=== PATIENT | male | born 1940 | race Caucasian/White ===

== ENCOUNTER → 2018-03-02 | Outpatient (CLI) | payer OTHER ==
[~2018-03-02] MED LIST: ASPIR 8181 MG PO; ATORVASTATIN CA40 MG PO; BUDESONIDE0.25 MG/2 INH; DOXYCYCLINE 10100 MG PO; DUONEB 2.5-0.5 M3 ML INH; GLIPIZIDE5 MG PO; HUMALOG100 UNIT/1 SUBQ; KLOR-CON 1010 MEQ PO; MAGNESIUM PO; MIRALAX17 GM PO; PLAVIX 75 MG TA75 M1 PO; VANCOMYCIN1.5 GM/500 IVPB; XARELTO10 MG PO; ZAROXOLYN 5MG TA5 MG PO
== END ==
LOC: M.WC 09:00
DX: S61.412A Laceration without foreign body of left hand, initial encounter (principal); E11.621 Type 2 diabetes mellitus with foot ulcer; L97.511 Non-pressure chronic ulcer of other part of right foot limited to breakdown of skin; E11.622 Type 2 diabetes mellitus with other skin ulcer; L97.311 Non-pressure chronic ulcer of right ankle limited to breakdown of skin; J44.9 Chronic obstructive pulmonary disease, unspecified; E11.22 Type 2 diabetes mellitus with diabetic chronic kidney disease; I12.9 Hypertensive chronic kidney disease with stage 1 through stage 4 chronic kidney disease, or unspecified chronic kidney disease; N18.9 Chronic kidney disease, unspecified; E11.40 Type 2 diabetes mellitus with diabetic neuropathy, unspecified; Z87.891 Personal history of nicotine dependence; X58.XXXA Exposure to other specified factors, initial encounter; Y93.89 Activity, other specified; Y92.89 Other specified places as the place of occurrence of the external cause; Y99.8 Other external cause status

== ENCOUNTER → 2018-03-04 | Outpatient (CLI) | payer OTHER | LOC: M.WC 04:04 | DX: S61.412D Laceration without foreign body of left hand, subsequent encounter (principal); E11.621 Type 2 diabetes mellitus with foot ulcer; L97.511 Non-pressure chronic ulcer of other part of right foot limited to breakdown of skin; L97.311 Non-pressure chronic ulcer of right ankle limited to breakdown of skin; E11.622 Type 2 diabetes mellitus with other skin ulcer; E11.40 Type 2 diabetes mellitus with diabetic neuropathy, unspecified; J44.9 Chronic obstructive pulmonary disease, unspecified; E11.22 Type 2 diabetes mellitus with diabetic chronic kidney disease; I12.9 Hypertensive chronic kidney disease with stage 1 through stage 4 chronic kidney disease, or unspecified chronic kidney disease; N18.9 Chronic kidney disease, unspecified; Z87.891 Personal history of nicotine dependence; X58.XXXD Exposure to other specified factors, subsequent encounter ==

== ENCOUNTER 2018-03-11 04:14 | Inpatient (IN) | payer OTHER ==
[~2018-03-11] VITALS: Ht 180.3 cm; Wt 134.8 kg
[2018-03-11 15:00] VITALS: BP 124/80
[2018-03-11] MEDS ORDERED: BUDESONIDE0.25 MG/2 INH (15:29)
[2018-03-11] MEDS ORDERED: GLIPIZIDE5 MG PO (15:29)
[2018-03-11] MEDS ORDERED: DUONEB 2.5-0.5 M3 ML INH (15:30)
[2018-03-11] MEDS ORDERED: MIRALAX17 GM PO (15:30)
[2018-03-11] MEDS ORDERED: HUMALOG100 UNIT/1 SUBQ (15:32)
[2018-03-11] MEDS ORDERED: XARELTO10 MG PO (15:32)
[2018-03-11] MEDS ORDERED: VANCOMYCIN1.5 GM/500 IVPB (15:33)
[2018-03-11] MEDS ORDERED: MAGNESIUM PO (15:34)
[2018-03-11] MEDS ORDERED: DOXYCYCLINE 10100 MG PO (15:34)
[2018-03-11 15:44] LABS: MCV 83.7 fL (80.0-100.0); NUCLEATED RBCS 0 /100WBC
[2018-03-11 15:46] LABS: ABSOLUTE BASOPHILS 0.1 thou/uL (0.0-0.2); ABSOLUTE EOSINOPHILS 0.6 thou/uL (0.0-0.7); ABSOLUTE LYMPHOCYTES 1.3 thou/uL (0.8-5.3); ABSOLUTE NEUTROPHILS 6.6 thou/uL (1.6-8.1); BASOPHILS 0.9 %; EOSINOPHILS 6.4 %; HEMATOCRIT 35.5 % (42.0-52.0); HEMOGLOBIN 11.2 gm/dL (14.0-18.0); LYMPHOCYTES 13.8 %; MCH 26.5 pg (26.0-34.0); MCHC 31.7 g/dL (28.0-37.0); MONOCYTES 10.5 %; MPV 9.1 fl. (7.2-11.1); PLATELET COUNT* 220 thou/uL (150-400); POLYS 68.4 %; RBC 4.24 mil/uL (4.50-6.00); RDW-CV 15.5 % (10.5-14.5); WBC 9.7 thou/uL (4.0-11.0)
[2018-03-11 15:52] LABS: CALCIUM 8.3 mg/dL (8.5-10.1); CREATININE 1.5 mg/dL (0.6-1.3); INR 1.3; MAGNESIUM 1.4 mg/dL (1.8-2.4); POTASSIUM 3.7 mmol/L (3.5-5.1); PROTIME 12.9 Seconds (9.20-11.50)
--- NOTE | 2018-03-11 17:35 | NUR ---
PATIENT DIRECT ADMIT FROM [facility] CENTER. ALERT AND ORIENTED X 4, [place]. RIGHT FOOT DRESSED AND DRY/INTACT. PATIENT MAX ASSISTACE OUT OF BED. GAIT BELT/WALKER. [address] RIGHT TRIPLE LUMEN PICC IN PLACE. ACCUCHECK. VOIDING PER URINAL. ORIENTED TO CALL LIGHT. FALL RISK PROTOCOL IN PLACE. CALL LIGHT WITHIN REACH, WILL CONTINUE TO MONITOR.
[2018-03-11 19:45] VITALS: BP 138/85
[2018-03-12 04:50] LABS: HEMATOCRIT 32.1 % (42.0-52.0); HEMOGLOBIN 10.2 gm/dL (14.0-18.0); MCH 26.7 pg (26.0-34.0); MCHC 31.9 g/dL (28.0-37.0); MCV 83.8 fL (80.0-100.0); MPV 9.9 fl. (7.2-11.1); RBC 3.83 mil/uL (4.50-6.00); RDW-CV 15.9 % (10.5-14.5)
[2018-03-12 05:15] LABS: CREATININE 1.3 mg/dL (0.6-1.3); MAGNESIUM 1.4 mg/dL (1.8-2.4); POTASSIUM 3.7 mmol/L (3.5-5.1)
--- NOTE | 2018-03-12 05:31 | NUR ---
PT SLEPT ON AND OFF THIS SHIFT. ASSESSMENT DOCUMENTED. MEDS GIVEN PER E-MAR. PICC PATENT, FLUIDS INFUSING. NO REPORTS OF PAIN OR NAUSEA. PT REFUSED REPOSITIONINGS THROUGH NIGHT. PT HAD BM THIS SHIFT. PT REMAINED NPO AFTER 0000. WILL CONTINUE WITH PLAN OF CARE.
[2018-03-12 08:00] VITALS: BP 143/82
[2018-03-12 11:47] VITALS: BP 143/82
--- NOTE | 2018-03-12 12:05 | NUR ---
Pt to have surgery today at 1 pm. Pt was at SNF [facility] prior to hospitalization. SW called and spoke with Astrid in admissions at [facility] [phone] who confirmed pt was in rehab at SNF. Astrid shared that insurance was about to end SNF covered days at time pt came into the hospital for surgery but that there is the possibility that pt could return for SNF; SW will need to send referral and SNF to receive insurance auth if plan at dc continues to be SNF. Pt has family support. SW to continue to follow to assist with safe dc planning.
--- NOTE | 2018-03-12 18:26 | NUR ---
ASSUMED CARE THIS AM. ОЛЕГ MEDS AND CARES WITHOUT DIFFICULTY, SEE ASSESSMENT FOR DETAILS. TAKE FOR PRE OP @ 1300, RETURNED THIS AFTERNOON, DENIES PAIN, A/O, CONT ON 6LO2 HI XANDER NC, VSS, GLUCOSE 89, INSULIN HELD. BLOOD SUGAR DROPPED TO 56 PRIOR TO SURGERY, NEEDED D10 100 ML PRIOR TO SURGERY. BULKY DRESSING C/D/I, ABLE TO WIGGLE TOES, COLOR IS NORMAL SKIN TONE. ОЛЕГ DIET WELL FOR SUPPER, MOD BM THIS AM, CONT CONTACT ISO FOR MRSA WOUND. CALL LIGHT IN REACH, CONT POC.
[2018-03-12 19:45] VITALS: BP 96/54
[2018-03-12 23:37] VITALS: BP 95/31
[2018-03-13 03:55] VITALS: BP 114/51
[2018-03-13 04:56] LABS: HEMATOCRIT 31.4 % (42.0-52.0); HEMOGLOBIN 10.1 gm/dL (14.0-18.0); MCH 26.9 pg (26.0-34.0); MCHC 32.1 g/dL (28.0-37.0); MCV 83.8 fL (80.0-100.0); MPV 9.3 fl. (7.2-11.1); RBC 3.74 mil/uL (4.50-6.00); RDW-CV 15.8 % (10.5-14.5); WBC 6.8 thou/uL (4.0-11.0)
[2018-03-13 05:10] LABS: CALCIUM 7.7 mg/dL (8.5-10.1); CREATININE 1.2 mg/dL (0.6-1.3); MAGNESIUM 1.5 mg/dL (1.8-2.4); POTASSIUM 4.3 mmol/L (3.5-5.1)
--- NOTE | 2018-03-13 05:47 | NUR ---
PT SLEPT ON AND OFF THIS SHIFT. ASSESSMENT DOCUMENTED. MEDS GIVEN PER E-DEC. PICC PATENT, FLUIDS INFUSING. NO REPORTS OF PAIN OR NAUSEA. DRESSING REMAINED C/D/I. WILL CONTINUE WITH PLAN OF CARE.
--- NOTE | 2018-03-13 07:36 | CON ---
[address] [address] CONSULTATION Name: DARLENE LORA Room: [address] IN M.R.#: [id number] Admission: 03/11/18 Attend Phys: Darlene Bowen MD Discharge: Date of : 38 Report #: [id number] THIS REPORT FOR: //name// CC: Mukesh Rizzo DATE OF SERVICE: 03/12/2018 ATTENDING PHYSICIAN: Darlene Bowen M.D. REASON FOR EVALUATION: Multifocal osteomyelitis involving the right first and second toes. HISTORY OF PRESENT ILLNESS: Chart reviewed, patient examined. A 77-year-old gentleman with diabetes mellitus type 2, has complicated peripheral neuropathy. Apparently, he was diagnosed previously with suspected deep infection, had been treated with outpatient parenteral antimicrobial therapy. I do not have the available records at this point, but he was seen in followup, was felt to have progressed in terms of worsening inflammation, was admitted to undergo operative intervention, which I tentatively planned for first and second toe amputations, which is scheduled for later today. Again, he notes not having significant amount of pain, although he attributes this to peripheral neuropathy. He has had some anorexia. Blood sugars have been somewhat variable. He was hypoglycemic earlier today, perhaps due to the n.p.o. status. He is not clear if he has had significant fevers or chills. He does have some ongoing issues with some dyspnea. Apparently, he had a recent cardiac evaluation that was otherwise unrevealing. He was started empirically on doxycycline and vancomycin. Blood cultures are pending. Plain imaging of the foot shows absence of the distal aspect of the distal phalanx, first toe and associated soft tissue defect concerning for distal first toe osteomyelitis and bone destruction. ALLERGIES: None known. MEDICATIONS: Include rivaroxaban, glipizide, insulin, vancomycin, doxycycline, budesonide, ipratropium and albuterol inhaler, p.r.n. analgesics, antiemetics. PAST MEDICAL HISTORY: As described above, the diabetes mellitus type 2, hypertension, previous left total knee arthroplasty. SOCIAL HISTORY: Former smoker. No ethanol, no illicit drug use. FAMILY HISTORY: [place] [address] CONSULTATION Name: DARLENE LORA Room: [address] IN [facility]#: [id number] Admission: 03/11/18 Attend Phys: Darlene Bowen MD Discharge: Date of : 38 Report #: [id number] REVIEW OF SYSTEMS: As above. Denies significant abdominal-related complaints. PHYSICAL EXAMINATION: GENERAL: Appears somewhat chronically ill. He is obese, although I suspect undernourished, does have some mild increased respiratory effort. VITAL SIGNS: Temperature 98.4, pulse 86, respirations 16, blood pressure 143/82. SKIN: Warm and dry. HEENT: Unremarkable. NECK: Supple. LUNGS: Diminished breath sounds. Few scattered crackles. HEART: Regular. ABDOMEN: Obese, soft, nontender. There are no peritoneal signs. GENITOURINARY AND RECTAL: Deferred. EXTREMITIES: Right foot has a dressing in place. LABORATORY DATA: Blood cultures sterile thus far. Electrolytes: Sodium 142, potassium 3.7, chloride 107, bicarbonate is 28, BUN and creatinine 16 and 1.3, glucose of 113. CBC: White count of 8.0, H and H 10.2 and 32.1, platelets of 215. Lactic acid 1.2. CRP of 42.9. ASSESSMENT: Osteomyelitis involving the right great toe, he is scheduled for surgery. We will continue empiric antimicrobial therapy. Await those results including path report as well as culture results. In all likelihood, he will need extended course of parenteral therapy. Need to arrange PICC perhaps in the next 24 hours. He seems somewhat tenuous, I think he is at risk for increased infectious complication including pneumonitis. We will add incentive spirometry. Monitor expectantly. <ELECTRONICALLY SIGNED> By: Tin Quintana MD 03/13/18 0736 1352 [id number] Quintana MD /nt
[2018-03-13 08:00] VITALS: BP 126/68
--- NOTE | 2018-03-13 09:51 | EKG ---
[place] [address] ELECTROCARDIOGRAM REPORT Name: DARLENE LORA Room: [address] ADM IN M.R.#: [id number] Admission: 03/11/18 Attend Phys: Darlene Bowen MD Discharge: Date of : 38 Report #: [id number] THIS REPORT FOR: //name// [facility] Test Date: 2018-03-12 Test Time: 12:22:58 Pat Name: DARLENE LORA Department: Room: [address] Gender: M Courtroom Reporter: JW : 1940 Requested By: Darlene Bowen Order Number: [id number] Jose MD: John Ceron Measurements Intervals [place] Rate: 87 P: 23 NV: 186 QRS: 105 QRSD: 106 T: -23 QT: 368 QTc: 443 Interpretive Statements Sinus rhythm Atrial premature complex Right axis deviation Borderline repolarization abnormality Baseline wander in lead(s) V2 Compared to ECG 08/24/2007 07:15:55 Atrial premature complex(es) now present Right-axis deviation now present Electronically Signed On 03-13-2018 9:51:21 CDT by John Ceron [email or web address] <ELECTRONICALLY SIGNED> By: John Ceron MD, [facility] 03/13/18 0951 1222 1222 John Ceron MD, [facility] /EPI
--- NOTE | 2018-03-13 14:00 | NUR ---
HATTIE faxed referral information to [facility] SNF in preparation for pt plan for SNF at or. [phone] fax [phone]. HATTIE to continue to follow.
--- NOTE | 2018-03-13 18:31 | NUR ---
RESUMED CARE THIS AM. A/O, EXPRESSES SELF IN GRUFF FASHION TOWARD AND STAFF. TURNED HOURLY DUE TO IMMOBILITY WHEN HE APPROVES, OFTEN REFUSING REPOSITIONING. ADAMANTLY REFUSED TRANSFER FROM BED TO RECLINER THIS SHIFT FOR MEALS. OBSTINANT TOWARD THERAPIST DURING EVALUATION THIS SHIFT, REFUSED NEBULIZER TREATMENT REPEATEDLY THIS SHIFT. GLUCOSE MANAGED WELL WITH INSULIN AND DIET, NO BM THIS SHIFT, BILAT BUTTOCKS REDDENED DUE TO IMMOBILITY, CARTER CARE AND COMPLETE BATH PROVIDED THIS SHIFT. ОЛЕГ DIET WELL. DEMANDING OF STAFF TO PERFORM ADL THAT HE IS INDEPENDENT OF, SUCH BED POSITIONING, BEDSIDE TABLE ARRANGEMENT, PILLOW PLACEMENT, ETC. GENERALIZED ATTITUDE OF NONCOMPLIANCE WITH DISCHARGE GOALS WHEN DISCUSSED. VITAL SIGNS STABLE, SIDE RAILS UP, CALL LIGHT IN REACH, DRESSING TO RIGHT FOOT IS C/D/I, PATIENT DENIES DISCOMFORT TO RIGHT FOOT. CONT POC.
[2018-03-13 20:35] VITALS: BP 112/68
--- NOTE | 2018-03-14 04:57 | NUR ---
PT SLEPT AT INTERVALS DURING THE NIGHT, PICC SALINE LOCKED, REMAINS ON ON HIGH FLOW CANNULA, USED URINAL WHILE IN BED, ALLOWED STAFF TO TURN A COUPLE OF TIMES, BUT OFTEN REFUSED TO BE REPOSITIONED, RIGHT FOOT DRSG C/D/I, BED ALARM ON FOR SAFETY, CALL LIGHT IN REACH, WILL CONTINUE TO MONITOR
[2018-03-14 07:41] LABS: CALCIUM 7.8 mg/dL (8.5-10.1); CREATININE 1.4 mg/dL (0.6-1.3); MAGNESIUM 1.5 mg/dL (1.8-2.4); POTASSIUM 4.4 mmol/L (3.5-5.1)
[2018-03-14 07:45] VITALS: BP 129/64
[2018-03-14 15:54] VITALS: BP 120/69
--- NOTE | 2018-03-14 16:21 | NUR ---
DRESSING TO RIGHT FOOT CHANGED TODAY BY DR. OKEEFE, SURGICAL SHOE ORDERED FOR THERAPY. PATIENT HEEL WEIGHT BEARING STATUS. TURNED Q2. IV ABX CHANGED TO MEREPENUM, RANDOM VANC DRAWN THIS SHIFT WITH VANCOMYCIN STILL ON HOLD. PATIENT HAD LARGE BM THIS SHIFT. REMAINS VOIDING PER URINAL. INSULIN GIVEN WITH MEALS WHEN REQUIRED.
[2018-03-14 20:00] VITALS: BP 124/79
--- NOTE | 2018-03-15 05:06 | NUR ---
PT SLEPT AT INTERVALS DURING THE NIGHT, IV ANTIBIOTIC AT HS, VOIDED PER URINAL, TURNED BUT PT ALSO REFUSED SOME TURNING, RIGHT FOOT UP ON PILLOW, DRSG REMAINS C/D/I TO RIGHT FOOT, BED ALARM ON FOR SAFETY, CALL LIGHT IN REACH, WILL CONTINUE TO MONITOR
[2018-03-15 06:12] LABS: HEMATOCRIT 30.8 % (42.0-52.0); HEMOGLOBIN 9.8 gm/dL (14.0-18.0); MCH 26.6 pg (26.0-34.0); MCHC 31.7 g/dL (28.0-37.0); MCV 83.9 fL (80.0-100.0); MPV 8.8 fl. (7.2-11.1); RBC 3.67 mil/uL (4.50-6.00); RDW-CV 15.2 % (10.5-14.5); WBC 7.2 thou/uL (4.0-11.0)
[2018-03-15 06:27] LABS: CREATININE 1.4 mg/dL (0.6-1.3); MAGNESIUM 1.8 mg/dL (1.8-2.4); POTASSIUM 4.8 mmol/L (3.5-5.1)
[2018-03-15 09:00] VITALS: BP 108/73
[2018-03-15 16:00] VITALS: BP 114/71
--- NOTE | 2018-03-15 16:12 | NUR ---
PATIENT ASSISTED UP TO WHEELCHAIR FOR BREAKFAST AND LUNCH. UP WITH ASSISTANCE OF ONE, WALKER AND GAIT BELT. PATIENT SAT UP IN CHAIR FOR APPROX 5 HOURS. PATIENT DID HAVE TROUBLE GETTING UP FROM CHAIR BACK TO BED, STATED HIS KNEES BUCKLED ON HIM. 02 REMAINS AT 8L. VOIDING PER URINAL. VANCOMYCIN IV ADDED BACK TO ABX REGIMIN. DR. OKEEFE HERE THIS AFTERNOON, DRESSING CHANGED AND PHOTO TAKEN OF INCISION PER PROTOCOL. POSSIBLE DISCHARGE TOMORROW.
[2018-03-15 16:42] VITALS: BP 108/73
[2018-03-15 20:15] VITALS: BP 90/57
[2018-03-16 04:23] LABS: CALCIUM 7.9 mg/dL (8.5-10.1); CREATININE 1.9 mg/dL (0.6-1.3); POTASSIUM 4.7 mmol/L (3.5-5.1)
--- NOTE | 2018-03-16 06:01 | NUR ---
PT SLEPT ON AND OFF THIS SHIFT. ASSESSMENT DOCUMENTED. MEDS GIVEN PER E-DEC. NO REPORTS OF PAIN OR NAUSEA. PICC PATENT, ABX INFUSED. NO CONCERNS AT THIS TIME, WILL CONTINUE WITH PLAN OF CARE.
[2018-03-16 08:00] VITALS: BP 112/69
--- NOTE | 2018-03-16 11:12 | NUR ---
HATTIE called and spoke with Astrid in admissions at [facility], insurance auth pending and Astrid said that she anticipates an answer from insurance today. If pt ready to dc today, possibility for dc to SNF. SW to continue to follow to assist with finalizing safe dc plan.
[2018-03-16 16:26] VITALS: BP 123/67
--- NOTE | 2018-03-16 19:00 | NUR ---
RESUMED CARE THIS AM, A/O, CONT TO DECLINE IN SELF-CARE, HAS REFUSED TO TURN SIDE-SIDE, DEMANDS THAT HIS DISABLED HOLD IS URINAL FOR HIM, THOUGH HE IS INDEPENDENT. DECLINED TO EXIT BED ALL THIS SHIFT, GLUCOSE STABLE, MANAGED WITH INSULIN, ОЛЕГ IV ABT PER [facility] PICC. D/C PLAN IS TO RETURN TO [facility] FOR WOUND CARE. DSG CHANGE WITH DR. OKEEFE YESTERDAY AFTERNOON. CALL LIGHT IN REACH, CONT POC.
[2018-03-16 20:45] VITALS: BP 100/61
[2018-03-17 04:12] LABS: HEMATOCRIT 29.5 % (42.0-52.0); HEMOGLOBIN 9.4 gm/dL (14.0-18.0); MCH 26.5 pg (26.0-34.0); MCHC 31.9 g/dL (28.0-37.0); MCV 83.1 fL (80.0-100.0); MPV 8.7 fl. (7.2-11.1); RBC 3.55 mil/uL (4.50-6.00); RDW-CV 15.7 % (10.5-14.5); WBC 7.4 thou/uL (4.0-11.0)
[2018-03-17 04:21] LABS: CALCIUM 8.3 mg/dL (8.5-10.1); CREATININE 1.5 mg/dL (0.6-1.3); MAGNESIUM 1.7 mg/dL (1.8-2.4); POTASSIUM 4.4 mmol/L (3.5-5.1)
--- NOTE | 2018-03-17 05:56 | NUR ---
PT SLEPT ON AND OFF THIS SHIFT. ASSESSMENT DOCUMENTED. MEDS GIVEN PER E-DEC. NO REPORTS OF PAIN OR NAUSEA. PT REPOSITIONED THROUGH NIGHT PT WOULD ALLOW. PICC PATENT. WILL CONTINUE WITH PLAN OF CARE.
[2018-03-17 08:00] VITALS: BP 124/68
[2018-03-17 12:19] VITALS: BP 108/73
--- NOTE | 2018-03-17 12:31 | NUR ---
Pt to dc to SNF today. HATTIE called Astrid at [facility] and she confirmed acceptance for pt to transition to [facility] today; scheduled transportation for 13:30. HATTIE received dc orders/med list and faxed them to admissions at [facility]. [phone] fax [phone]. HATTIE spoke with pt and pt about dc plans; pt and pt in agreement with plan.
--- NOTE | 2018-03-17 13:50 | NUR ---
PATIENT A&OX4, 8L O2 VIA NC, RIGHT UPPER ARM PIC TRIPPLE LUMEN, FLUSHES AND DRAWS FINE. UP WITH MAX ASSISTX2-3, WITH W/C AND GIATBELT. UP IN W/C. D/C PICTURE TAKEN OF RIGHT FOOT. NO C/O PAIN/V/N. CALLED REPORT SPOKE WITH OPAL. ALL QUESTIONS ANSWERED, VERBALIZES UNDERSTANDING, NO FURTHER QUESTIONS AT THIS TIME. APPROPRIATE AND COOPORATIVE WITH CARE.
--- NOTE | 2018-03-18 14:08 | CON ---
[address] [address] CONSULTATION Name: DARLENE LORA Room: [address] IN M.R.#: [id number] Admission: 03/11/18 Attend Phys: Darlene Bowen MD Discharge: 03/17/18 Date of : 38 Report #: [id number] THIS REPORT FOR: //name// CC: Mukesh Rizzo DATE OF SERVICE: 03/15/2018 CHIEF COMPLAINT: Status post amputation, right first and second toes for osteomyelitis with nonhealing ulcerations. Surgical wound and bone cultures grew Pseudomonas species, he is on parenteral vancomycin and Cipro. He has been afebrile with good appetite, denies right foot pain. Surgical pathology is pending. LABORATORY DATA: WBC 7.2, RBC 3.67, hemoglobin 9.8, hematocrit 30.8, platelets 216. BUN 18, creatinine 1.4, glucose 140. PHYSICAL EXAMINATION: Surgical incision is well coapted with no drainage, dehiscence or cardinal signs of infection, low-grade inflammation, immediate priyanka-incisional capillary refill. Palpable right dorsalis pedis and posterior tibial pulses. No popliteal adenopathy or calf pain bilaterally. IMPRESSION: Osteomyelitis, right first and second toes. PLAN: The incision was cleansed, dried and redressed with a sterile gauze, compressive bandage. The patient may ambulate in a surgical shoe, weightbearing as tolerated with assistive device with therapy. I will follow up with him at [facility] as scheduled. <ELECTRONICALLY SIGNED> By: Mukesh Buenrostro DPM 03/18/18 1408 1534 [id number] Buenrostro DPM /nt
--- NOTE | 2018-03-18 14:08 | OP ---
[address] [address] OPERATIVE REPORT Name: DARLENE LORA Room: [address] IN M.R.#: [id number] Admission: 03/11/18 Attend Phys: Darlene Bowen MD Discharge: 03/17/18 Date of : 38 Report #: [id number] THIS REPORT FOR: //name// CC: Mukesh Rizzo DATE OF SERVICE: 03/12/2018 SURGEON: Mukesh Buenrostro DPM PREOPERATIVE DIAGNOSES: Nonhealing ulcerations to right dorsal first and second toes with likely osteomyelitis. POSTOPERATIVE DIAGNOSES: Nonhealing ulcerations to right dorsal first and second toes with likely osteomyelitis. PROCEDURE: 1. Amputation, right first and second toes with primary closure. 2. Incision and drainage, right foot. 3. Pedicled skin flap, right foot. ANESTHESIA: MAC. INJECTABLES: 20 mL of 1:1 mixture of 0.5% Marcaine plain and 1% lidocaine plain. HEMOSTASIS: Right ankle pneumatic tourniquet at 275 mmHg. SPECIMENS: Right first and second toes. CULTURES: 1. Bone, proximal phalanges of right second digit, aerobic and anaerobic. 2. Soft tissue, right second toe, aerobic and anaerobic. ESTIMATED BLOOD LOSS: Roughly 5 mL. SUTURES: 3-0 nylon. COMPLICATIONS: None. DESCRIPTION OF PROCEDURE: The patient was brought to the OR and placed on the table supine with induction of MAC anesthesia. A well-padded right ankle pneumatic tourniquet was placed, and local anesthetic block was given to the right distal foot. Extremity was prepped and draped aseptically. It was [place] [id number] OPERATIVE REPORT Name: DARLENE LORA Room: [address]#: [id number] Admission: 03/11/18 Attend Phys: Darlene Bowen MD Discharge: 03/17/18 Date of : 38 Report #: [id number] exsanguinated with inflation of the tourniquet. A #10 blade was used to create a circumferential incision along the dorsal base of the first and second toes and then around the plantar aspect circumferentially. Layered anatomic dissection was used with the scalpel and electrocautery. The first and second toes were disarticulated at the MTP joints. There is no purulence or signs of infection at this level. Intraoperative wound was debrided of tendons and excessive material with the use of cauterization as well. The wound was flushed with sterile saline and dried. The skin was then remodeled, and a plantar skin flap was then mobilized dorsally and sutured with 3-0 nylon in simple interrupted fashion. The foot was cleansed and dried, and the tourniquet was deflated with normal vascular return to the priyanka-incision, sterile compressive bandage with Aquacel Ag, fluffs, ABDs, Kerlix and Enio were applied. A portion of bone from the right second digit, proximal phalangeal was sent for aerobic and anaerobic cultures. Surrounding soft tissue was sent for the same cultures. The right first and second toes were sent for surgical pathology. The patient left the OR alert and oriented with no pain or complications noted. <ELECTRONICALLY SIGNED> By: Mukesh Buenrostro DPM 03/18/18 1408 0727 [id number] Buenrostro DPM /nt
--- NOTE | 2018-03-18 14:08 | CON ---
[address] [address] CONSULTATION Name: DARLENE LORA Room: [address] IN M.R.#: [id number] Admission: 03/11/18 Attend Phys: Darlene Bowen MD Discharge: 03/17/18 Date of : 38 Report #: [id number] THIS REPORT FOR: //name// CC: Mukesh Rizzo DATE OF SERVICE: 03/14/2018 CHIEF COMPLAINT: Status post amputation, right first and second toes with primary closure. Surgical bone and tissue cultures grew Pseudomonas. He is on parenteral vancomycin and meropenem with tolerance. He has been afebrile with no constitutional symptoms and good appetite. He denies pain to the surgical site. He has been nonambulatory for several months, although he did have physical therapy today and he was able to sit up on the side of the bed. He was previously residing at [facility] prior to this hospital admission. He was not making significant rehabilitation progress in terms of his ability to stand or ambulate. LABORATORY DATA: WBC 6.8, RBC 3.74, hemoglobin 10.1, hematocrit 31.4, platelets 203. BUN 15, creatinine 1.4, glucose 123. PHYSICAL EXAMINATION: Surgical incision is well coapted with minimal inflammation and no signs of dehiscence or acute vascular changes. No drainage, no underlying fluctuance or crepitation. The adjacent third, fourth and fifth toes are intact with no vascular compromise or open wounds. No popliteal adenopathy or calf pain bilaterally. IMPRESSION: Status post amputation, right first and second toes with osteomyelitis. PLAN: The incision was cleansed and redressed with 4 x 4s, ABDs, Kerlix, and Coban. I will order a surgical shoe and see if the physical therapist can have him sewing pattern layout technician that shoe, otherwise we will have to maybe try a shoe or nonslip sock over his foot bandage. I will see him tomorrow for dressing change. <ELECTRONICALLY SIGNED> By: Mukesh Buenrostro DPM 03/18/18 1408 1223 [id number] Buenrostro DPM /nt
--- NOTE | 2018-06-10 14:10 | PATH ---
[address] [address] PATHOLOGY RPT PROCEDURE Name: DARLENE CHANDRA Room: [address] IN M.RLashonda#: [id number] Admission: 03/11/18 Date of : 38 Discharge: 03/17/18 Report #: [id number] Path Case #: [id number] [facility] Accession Number: [id number] . 01 Material submitted: . RIGHT FIRST AND SECOND TOES . 01 Clinical history: . Osteomyelitis . 02 Diagnosis: Right great toe and second toe: - Benign great toe with nonspecific ulceration, acute and chronic inflammation of soft tissues and prominent osteomyelitis of phalangeal bones, with proximal disarticulation margin free of osteomyelitis. - Benign second toe with nonspecific ulceration, acute and chronic inflammation of soft tissue and osteomyelitis of phalangeal bone, with proximal disarticulation margin free of osteomyelitis. (AI:pit; 03/16/2018) QTP/03/16/2018 . 02 Electronically signed: . Vicente Abernathy MD, Pathologist NPI- [id number] . 01 Gross description: . Received in formalin labeled "Darlene Chandra, right great toe and second toe," are two digit amputation specimens. The larger segment measures 5.4 x 3.2 x 3.2 cm in greatest dimensions. The bone margin is smooth and concave in appearance, consistent with disarticulation. A possible nail remnant is present in the nailbed that is irregularly shaped and yellow-li in appearance. The dorsal epidermal surface displays an ulcerated lesion measuring 2.2 x 1.8 cm that extends to the soft tissue margin. The bone and soft tissue margins are inked black. A full-thickness cross section is submitted proximal to distal in cassettes A1 through A4 (the distal aspect is divided between dorsal and plantar aspects and submitted in cassettes A3 and A4, respectively). Cassettes A1 through A3 are decalcified prior to submission. Additional chain sales representative sections of the dorsal aspect lesion are submitted in cassette A5. . The smaller segment measures 5.3 x 2.2 x 1.7 cm in greatest dimensions. The bone margin is smooth and concave in appearance, consistent with disarticulation. A nail is present in the nailbed that is thickened, granular and yellow-li in appearance. The dorsal epidermal surface displays an ulcerated lesion measuring 2.1 x 1.4 cm that extends to within 0.4 cm of the nearest soft tissue margin. The surgical margin is inked yellow. A full-thickness cross section is submitted proximal to distal in cassettes A6 through A8, following [place] [address] PATHOLOGY RPT PROCEDURE Name: DARLENE CHANDRA Room: [address] DIS IN M.R.#: [id number] Admission: 03/11/18 Date of : 38 Discharge: 03/17/18 Report #: [id number] Path Case #: [id number] chain sales representative sections of the dorsal aspect lesion are submitted in cassette A9. (DAC; 03/13/2018) XDC/XDC . 02 Pathologist provided ICD-10: M86.8X7, L97.519 . 02 CPT . 376022, 204416, 589581 Performed at: [address] [place] [id number] [facility] [address], [place] [id number] MD Myron Ferris MD Phone: [phone] Performed at: 02 [facility] [address], [place], [place] [id number] MD Vicente Abernathy MD Phone: [phone]
== END 2018-03-17 13:40 | DRG 503 ==
LOC: M.WC 04:14 → M.3W 14:48
PROVIDERS: ADMIT Internal Medicine
PROC: 0Y6R0Z1 Detachment at Right 2nd Toe, High, Open Approach (ICD-10-PCS; principal; 2018-03-12)
PROC: 0Y6P0Z1 Detachment at Right 1st Toe, High, Open Approach (ICD-10-PCS; principal; 2018-03-12)
DX: M86.671 Other chronic osteomyelitis, right ankle and foot (principal); J96.21 Acute and chronic respiratory failure with hypoxia; Z68.41 Body mass index [BMI] 40.0-44.9, adult; E66.01 Morbid (severe) obesity due to excess calories; B96.5 Pseudomonas (aeruginosa) (mallei) (pseudomallei) as the cause of diseases classified elsewhere; I12.9 Hypertensive chronic kidney disease with stage 1 through stage 4 chronic kidney disease, or unspecified chronic kidney disease; E11.22 Type 2 diabetes mellitus with diabetic chronic kidney disease; J44.9 Chronic obstructive pulmonary disease, unspecified; D64.9 Anemia, unspecified; E78.5 Hyperlipidemia, unspecified; N18.3 Chronic kidney disease, stage 3 (moderate); E11.42 Type 2 diabetes mellitus with diabetic polyneuropathy; Z96.652 Presence of left artificial knee joint; Z87.891 Personal history of nicotine dependence; Z79.2 Long term (current) use of antibiotics; Z79.899 Other long term (current) drug therapy; Z99.81 Dependence on supplemental oxygen

== ENCOUNTER → 2018-03-25 | Outpatient (CLI) | payer OTHER | LOC: M.WC 00:45 | DX: T87.89 Other complications of amputation stump (principal); E11.621 Type 2 diabetes mellitus with foot ulcer; L97.211 Non-pressure chronic ulcer of right calf limited to breakdown of skin; I12.9 Hypertensive chronic kidney disease with stage 1 through stage 4 chronic kidney disease, or unspecified chronic kidney disease; E11.22 Type 2 diabetes mellitus with diabetic chronic kidney disease; N18.9 Chronic kidney disease, unspecified; E11.40 Type 2 diabetes mellitus with diabetic neuropathy, unspecified; G47.33 Obstructive sleep apnea (adult) (pediatric); J44.9 Chronic obstructive pulmonary disease, unspecified; Z87.891 Personal history of nicotine dependence; Y83.5 Amputation of limb(s) as the cause of abnormal reaction of the patient, or of later complication, without mention of misadventure at the time of the procedure ==

== ENCOUNTER 2018-04-01 16:37 | Inpatient (IN) | payer OTHER ==
[~2018-04-01] VITALS: Ht 180.3 cm; Wt 143.0 kg
[~2018-04-01 16:37] MED LIST changes: -ASPIR 8181 MG PO; -ATORVASTATIN CA40 MG PO; -KLOR-CON 1010 MEQ PO; -PLAVIX 75 MG TA75 M1 PO; -ZAROXOLYN 5MG TA5 MG PO
[2018-04-01 16:40] VITALS: BP 117/63
[2018-04-01] MEDS ORDERED: ZAROXOLYN 5MG TA5 MG PO (16:59)
[2018-04-01] MEDS ORDERED: KLOR-CON 1010 MEQ PO (17:00)
[2018-04-01 17:11] LABS: URINE BILIRUBIN NEGATIVE (Negative); URINE BLOOD 3+ (Negative); URINE CLARITY CLEAR; URINE COLOR YELLOW; URINE GLUCOSE-RANDOM NEGATIVE (Negative); URINE KETONES NEGATIVE (Negative); URINE LEUKOCYTES-REFLEX 1+ (Negative); URINE NITRITE-REFLEX NEGATIVE (Negative); URINE PROTEIN 1+ (Negative); URINE UROBILINOGEN 0.2 E.U./dl (0.2-1.0)
[2018-04-01 17:18] LABS: URINE RBC >20 Many /HPF (0-2)
[2018-04-01 17:19] LABS: SQUAMOUS 0-3 Few /LPF (0-3)
[2018-04-01 17:20] LABS: CASTS None Seen /LPF (None Seen); CRYSTALS None Seen /LPF (None Seen); MUCUS None Seen strn/LPF (None Seen)
[2018-04-01 17:21] LABS: BACTERIA-REFLEX 1-9 Few /HPF (None Seen)
[2018-04-01 17:26] LABS: HEMOGLOBIN 10.4 gm/dL (14.0-18.0); MCH 24.6 pg (26.0-34.0); MCHC 30.6 g/dL (28.0-37.0); MCV 80.4 fL (80.0-100.0); MPV 9.1 fl. (7.2-11.1); NUCLEATED RBCS 0 /100WBC; PLATELET COUNT* 309 thou/uL (150-400); RBC 4.23 mil/uL (4.50-6.00); RDW-CV 16.6 % (10.5-14.5); WBC 15.3 thou/uL (4.0-11.0)
[2018-04-01 17:43] LABS: CALCIUM 8.4 mg/dL (8.5-10.1); CREATININE 3.2 mg/dL (0.6-1.3); POTASSIUM 5.3 mmol/L (3.5-5.1)
[2018-04-01 17:50] LABS: ALBUMIN 2.6 g/dL (3.4-5.0); TOTAL PROTEIN 5.7 g/dL (6.4-8.2)
[2018-04-01 17:55] LABS: TROPONIN-I LEVEL 2.28 ng/mL (<0.06)
[2018-04-01 17:59] LABS: ABSOLUTE LYMPHOCYTES 0.5 thou/uL (0.8-5.3); ABSOLUTE MONOCYTES 0.9 thou/uL (0.0-1.2); ABSOLUTE NEUTROPHILS 13.9 thou/uL (1.6-8.1)
[2018-04-01 18:01] LABS: ANISOCYTOSIS Occasional; HYPOCHROMASIA Occasional; PLATELET ESTIMATE ADEQUATE
[2018-04-01 18:42] LABS: APTT 35.3 Seconds (25.0-31.3); INR 1.4
[2018-04-01 18:49] VITALS: BP 107/72
[2018-04-01 19:06] VITALS: BP 104/62
[2018-04-01 20:00] VITALS: BP 109/63
[2018-04-02] VITALS: BP 113/56
[2018-04-02 04:00] VITALS: BP 107/64
--- NOTE | 2018-04-02 06:59 | NUR ---
PATIENT TROPS ARE HIGH, DOCTOR STEPH NOTIFIED, HEPRAIN DRIP ORDERED. PTT ELEVATED, HEPRAIN HELD AT 0650. PATIENT NPO FOR CARDIO CONSULT. WOUND ON RIGHT FOOT CLEANSED AND DRESSED. PATIENT DID NOT SHOW SIGNS OF DISTRESSS. PATIENT PICC DRY AND INTACT. FALL PRECAUTIONS IN PLACE, BED ALARM QUARTER LINING SMOOTHER, LIGHT WITH IN REACH, HOURLY ROUNDING OBSERVED, PATIENT TURNED Q2 HOURS.
[2018-04-02 08:00] VITALS: BP 109/70
[2018-04-02 13:40] VITALS: BP 115/65
--- NOTE | 2018-04-02 14:02 | NUR ---
Nutrition: Consult received for "weight change." Per [employer], pt gained ~20# in past month. Pt was sound asleep at time of attempted visit. No edema. No wt hx obtained. RN stated pt has no edema, appetite is good, pt is noncompliant. Admitted with ARF, UTI, pyelonephritis. H/o OBE, HTN, PVD, toe amputations. Labs: Na 132, K+ 5.3, BUN 29, creat 3.2, BG 123, alb 2.6, prealb 12.3. Severely depleted visceral protein stores. Pt appears at Mild to moderate risk. No nutrition interventions needed today. Encourage good po intake. RD will follow up on po intake, labs, wt hx 04/07/18.
--- NOTE | 2018-04-02 15:41 | NUR ---
WOUND NURSE: PATIENT SEEN FOR WOUND ASSESSMENT AND INTERVENTION PERTAINING TO POST OP WOUND FROM 03/11 WHERE RIGHT 1ST AND 2ND TOES WERE REMOVED. LINEAR INCISION IS CLEAN AND DRY WITH EDGES WELL APPROXIMATED AND SECURED WITH INTACT SUTURES. THERE IS NO PERIWOUND REDNESS, WARMTH, OR INDURATION NOTED. CLEANSED WITH WOUND CLEANSER AND GAUZE, THEN APPLIED AQUACEL AG UNDER ABD, THEN WRAPPED WITH KERLEX ROLL GAUZE, THEN SECURED WITH TAPE. THIS WAS TOLERATED WELL BY THE PATIENT. INSTRUCTED ON MEASURES TO CONTINUE TO PROMOTE HEALING AND PREVENT COMPLICATING FACTORS WITH GOOD UNDERSTANDING ACHEIVED. INFORMED DR. SARY DPM THAT PATIENT WAS HERE AND HE DOES NOT PLAN TO SEE PATIENT IN ACUTE CARE.
--- NOTE | 2018-04-02 15:42 | NUR ---
ATTEMPTED TO SEE PT X3, SLEEPING. HE WAS ADMITTED FROM SNF AT [facility]. SPOKE WITH LEWIS THERE, HE WAS NEAR DISCHARGE. IN ORDER TO RETURN, WILL NEED TO HAVE THERAPY [employer] AND [employer] AUTH
[2018-04-02 16:33] VITALS: BP 93/64
--- NOTE | 2018-04-02 16:34 | 2DMMODE ---
[place] [address] 2 D/M-MODE ECHOCARDIOGRAM Name: DARLENE LORA Room: [address] IN [facility]#: [id number] Admission: 04/01/18 Attend Phys: Diana Johansen Discharge: Date of : 38 Date of Service: 04/02/18 1634 Report #: [id number] THIS REPORT FOR: //name// APPROVED REPORT Study performed: 04/02/2018 11:23:32 EXAM: Comprehensive 2D, Doppler, and color-flow Echocardiogram Patient Location: In-Patient Room #: [facility] Status: routine BSA: 2.57 HR: 96 bpm BP: 107/64 mmHg Rhythm: NSR Other Information Study Quality: Good Indications Elevated Troponin 2D Dimensions LVEF(%): 46.85 (>50%) IVSd: 14.13 (7-11mm) LVOT Diam: 21.81 (18-24mm) LVDd: 41.67 mm PWd: 11.24 (7-11mm) Ascending Ao: 40.97 (22-36mm) LVDs: 32.01 (25-40mm) Aortic Root: 31.20 mm Reyes's LVEF: 46.85 % Volumes Left Atrial Volume (Systole) LA ESV Index: 23.00 mL/m2 Aortic Valve AoV Peak Ryder.: 2.50 m/s AO Peak Gr.: 25.03 mmHg LVOT Max P.04 mmHg AO Mean Gr.: 15.59 mmHg LVOT Mean P.11 mmHg LVOT Max V: 0.71 m/s AO V2 VTI: 45.06 cm LVOT Mean V: 0.49 m/s ADARSH (VTI): 1.29 cm2 LVOT V1 VTI: 15.61 cm Mitral Valve E/A Ratio: 0.56 [place] [address] 2 D/M-MODE ECHOCARDIOGRAM Name: DARLENE LORA Room: [address] IN .R.#: [id number] Admission: 04/01/18 Attend Phys: Diana Johansen Discharge: Date of : 38 Date of Service: 04/02/18 1634 Report #: [id number] MV Decel. Time: 81.60 ms MV E Max Ryder.: 0.65 m/s MV PHT: 23.67 ms MVA (PHT): 9.30 cm2 TDI E/Lateral E': 9.29 Lateral E' Ryder.: 0.07 m/s Pulmonary Valve PV Peak Ryder.: 0.96 m/s PV Peak Gr.: 3.66 mmHg Tricuspid Valve TR Peak Gr.: 35.96 mmHg RVSP: 40.00 mmHg Left Ventricle The left ventricle is normal size. There is normal LV segmental wall motion. Mild concentric left ventricular hypertrophy. Left ventricular systolic function is borderline. LVEF is 50%. Grade I - abnormal relaxation pattern. Right Ventricle Right ventricle is mildly dilated. The right ventricular systolic function is normal. Atria The left atrium size is normal. The right atrium size is normal. Aortic Valve Moderate aortic valve sclerosis. Mild aortic regurgitation. Moderate aortic stenosis. Mitral Valve There is mitral annular calcification. Mild mitral regurgitation. No evidence of mitral valve stenosis. Tricuspid Valve The tricuspid valve is normal in structure. Mild tricuspid regurgitation. The RVSP is 40-45 mmHg. Pulmonic Valve The pulmonary valve is normal in structure. Mild pulmonic regurgitation[place] [address] 2 D/M-MODE ECHOCARDIOGRAM Name: DARLENE LORA Room: [address] IN ..#: [id number] Admission: 04/01/18 Attend Phys: Diana Johansen Discharge: Date of : 38 Date of Service: 04/02/18 1634 Report #: [id number] The aortic root is normal in size. IVC is normal in size and collapses with >50% inspiration Pericardium There is no pericardial effusion. <Conclusion> The left ventricle is normal size. Mild concentric left ventricular hypertrophy. Left ventricular systolic function is borderline. LVEF is 50%. Grade I - abnormal relaxation pattern. Right ventricle is mildly dilated. The left atrium size is normal. Moderate aortic valve sclerosis. Mild aortic regurgitation. Moderate aortic stenosis. There is mitral annular calcification. Mild mitral regurgitation. No evidence of mitral valve stenosis. The tricuspid valve is normal in structure. Mild tricuspid regurgitation. The RVSP is 40-45 mmHg. The aortic root is normal in size. IVC is normal in size and collapses with >50% inspiration There is no pericardial effusion. There is normal LV segmental wall motion. <ELECTRONICALLY SIGNED> By: Terrance Rivers MD, FACC 04/02/18 1634 1634 1634 Terrance Rivers MD, FACC /INF
--- NOTE | 2018-04-02 17:35 | NUR ---
ASSUMED CARE OF PT THIS AM ASSESSED AND DOCUMENTED. SEE CHART. PT CONT TO BE TURNED AND REPOSITIONED Q2 HR. 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 HE CONT ON A HEPARIN GTT. EDUCATION GIVEN ON DEMAND. HOURLY ROUNDING COMPLETE. PT HAS BEEN UNHAPPY AND RUDE TO STAFF. BELIEVE THIS IS R/T HIS ANXIETY AND FEAR. UA OBTAINED AND TAKEN TO LAB. PT CONT ON FALL RISK PWER FACILITY PROTOCOL.
[2018-04-02 20:00] VITALS: BP 111/48
[2018-04-02 22:38] LABS: URINE BILIRUBIN NEGATIVE (Negative); URINE BLOOD 1+ (Negative); URINE CLARITY CLEAR; URINE COLOR YELLOW; URINE GLUCOSE-RANDOM NEGATIVE (Negative); URINE KETONES NEGATIVE (Negative); URINE LEUKOCYTES 1+ (Negative); URINE NITRITE NEGATIVE (Negative); URINE PROTEIN NEGATIVE (Negative); URINE SPECIFIC GRAVITY 1.025 (1.005-1.030); URINE UROBILINOGEN 0.2 E.U./dl (0.2-1.0)
[2018-04-02 22:45] LABS: HYALINE CASTS 0-3 Few /LPF (None Seen); SQUAMOUS 4-10 Moderate /LPF (0-3)
[2018-04-02 22:46] LABS: YEAST Present (None Seen)
[2018-04-02 22:47] LABS: BACTERIA 1-9 Few /HPF (None Seen); CRYSTALS None Seen /LPF (None Seen); MUCUS None Seen strn/LPF (None Seen); URINE RBC 0-2 Rare /HPF (0-2); URINE WBC 0-5 Rare /HPF (0-5)
[2018-04-02 23:29] LABS: MAGNESIUM 1.4 mg/dL (1.8-2.4); POTASSIUM 4.2 mmol/L (3.5-5.1)
[2018-04-03] VITALS: BP 94/56
[2018-04-03 04:00] VITALS: BP 97/64
--- NOTE | 2018-04-03 05:29 | NUR ---
PATIENT RESTED IN BED, NO ACUTE CHANGES. PATIENT DID NOT SHOW SIGNS OF DISTRESS. HEPARIN DRIP CONTINUE, NO CHANGE IN RATE DUE THERAPEUTIC PTT LAB. PATIENT TURNED Q2 HOURS. FALL PRECAUTIONS IN PLACE, BED ALARM ON, CALL LIGHT WITHIN REACH, HOURLY ROUNDING OBSERVED.
--- NOTE | 2018-04-03 05:43 | NUR ---
PATIENT HAD 14 BEATS OF V TACH, CARIDOLOGY NOTIFIED, SEE ORDERS.
--- NOTE | 2018-04-03 06:01 | NUR ---
NO STONES FOUND IN URINE.
[2018-04-03 07:30] VITALS: BP 94/61
[2018-04-03 08:26] LABS: HEMATOCRIT 27.8 % (42.0-52.0); HEMOGLOBIN 8.6 gm/dL (14.0-18.0); MCH 24.9 pg (26.0-34.0); MCHC 30.8 g/dL (28.0-37.0); MCV 80.7 fL (80.0-100.0); MPV 8.9 fl. (7.2-11.1); RBC 3.44 mil/uL (4.50-6.00); RDW-CV 16.2 % (10.5-14.5); WBC 8.8 thou/uL (4.0-11.0)
[2018-04-03 08:38] LABS: CALCIUM 6.6 mg/dL (8.5-10.1); CREATININE 2.3 mg/dL (0.6-1.3); MAGNESIUM 1.7 mg/dL (1.8-2.4); POTASSIUM 3.9 mmol/L (3.5-5.1)
--- NOTE | 2018-04-03 09:31 | NUR ---
WOUND NURSE; PATIENT'S DRESSING WAS REMOVED FROM RIGHT FOOT AND INCISION CLEANSED WITH WOUND CLEANSER AND GAUZE. APPLIED AQUACEL AG UNDER ABD, THEN WRAPPED WITH KERLEX ROLL GAUZE, THEN SECURED WITH TAPE. THIS WAS TOLERATED WELL BY THE PATIENT. SUTURES REMAIN INTACT AND THERE IS NO DRAINAGE, REDNESS, WARMTH, OR EDEMA. EDGES REMAIN WELL APPROXIMATED.
--- NOTE | 2018-04-03 11:31 | NUR ---
RECEIVED PT CARE 0700. PATIENT IS ALERT AND ORIENTED X4. VSS. EMERGENCY OPERATOR TRACING SR. O2 SAT 97% ON 8L NC. HE VOIDS PER URINAL. REPOSITIONED FOR COMFORT. AM ASSESSMENT CHARTED. MEDS PER MAR. PATIENT UPDATED ON PLAN OF CARE. CALL LIGHT WITHIN REACH. WILL CONTINUE TO MONITOR.
[2018-04-03 11:34] VITALS: BP 101/66
--- NOTE | 2018-04-03 12:31 | EKG ---
[place] [address] ELECTROCARDIOGRAM REPORT Name: DARLENE LORA Room: [address] IN .R.#: [id number] Admission: 04/01/18 Attend Phys: Sun Vanessa Discharge: Date of : 38 Report #: [id number] THIS REPORT FOR: //name// [facility] ED Test Date: 2018-04-01 Test Time: 16:41:09 Pat Name: DARLENE LORA Department: Room: Gender: Air Commodore: Татьяна COLUNGA : 1940 Requested By: Ruthie Masters Order Number: [id number] MD: John Ceron Measurements Intervals [place] Rate: 114 P: 50 ME: 161 QRS: 113 QRSD: 114 T: -40 QT: 341 QTc: 470 Interpretive Statements Sinus tachycardia rightward axis nonspecific t wave changes Atrial premature complex Incomplete right bundle branch block Compared to ECG 03/12/2018 12:22:58 Incomplete right bundle-branch block now present Sinus rhythm no longer present Electronically Signed On 04-03-2018 12:31:06 CDT by John Ceron [email or web address] <ELECTRONICALLY SIGNED> By: John Ceron MD, [facility] 04/03/18 1231 1641 1641 John Ceron MD, [facility] /EPI
--- NOTE | 2018-04-03 14:27 | NUR ---
MET WITH PT TO DISCUSS HOME SITUATION/DC PLANNING. PT KNOWN TO , WAS AT [facility] FOR SNF AND GETTING CLOSE TO DC THERE. ANA LUISA/ISABEL HERE TODAY AND MET WITH PT. IN ORDER TO RETURN TO [facility] TO SNF, HE IS INTO HIS COPAY DAYS AND WOULD NEED TO PAY $1100 (WHICH IS THE REST OF HIS OUT OF POCKET) PRIOR TO RETURNING THERE FOR SNF. V WOULD ALSO NEED TO GET INSURANCE AUTH. PT STATES PRIOR TO SNF, HE LIVED AT HOME WITH HIS AND DTR. WAS FAIRLY INDEPENDENT AND DROVE. DTR ASSISTS WITH CARES. PT HAS HOME O2 AND NEBULIZER THRU [facility]. HE HAS HAD HH IN PAST ALSO. WILL FAX REFERRAL TO [facility] AND FOLLOW. [facility] [phone] FAX [phone]
[2018-04-03 16:00] VITALS: BP 88/63
[2018-04-03 20:00] VITALS: BP 98/48
[2018-04-04] VITALS: BP 94/63
[2018-04-04 04:00] VITALS: BP 99/65
--- NOTE | 2018-04-04 04:50 | NUR ---
ASSUMED PT CARE AT 1930, PT IS A&OX4, PT IS TRACING NSR ON THE MONITOR, ON 8L NC WHICH PT STATES HE WEARS AT HOME. IVF INFUSING PER MAR. PT HAS A WOUND TO HIS RIGHT FOOT, PT HAD SOME TOES AMPUTATED. ACCORDING MTO DAY RN, INCISION IS STILL CLOSED BY STITCHES. THIS RN DID NOT VISUALIZE THE WOUND. WOUND WAS CLEANED AND DRESSED BY WOUND CARE. PT HAD EPISODES OF REFUSING TO TURN THIS SHIFT. VERBAL EDUCATION GIVEN ON NEED TO SHIFT WEIGHT TO NOT GET A PRESSURE ULCER. BED IN LOW POSITION, CALL LIGHT IN REACH, BED ALARM ON, YELLOW ARM BAND AND SOCKS IN PALCE. HOURLY ROUNDING COMPLETED FOR PT SAFETY.
[2018-04-04 05:13] LABS: HEMATOCRIT 31.8 % (42.0-52.0); HEMOGLOBIN 9.7 gm/dL (14.0-18.0); MCH 24.5 pg (26.0-34.0); MCHC 30.4 g/dL (28.0-37.0); MCV 80.9 fL (80.0-100.0); MPV 9.6 fl. (7.2-11.1); RBC 3.93 mil/uL (4.50-6.00); RDW-CV 16.5 % (10.5-14.5); WBC 9.6 thou/uL (4.0-11.0)
[2018-04-04 06:15] LABS: ALBUMIN 2.3 g/dL (3.4-5.0); CALCIUM 8.2 mg/dL (8.5-10.1); CREATININE 2.4 mg/dL (0.6-1.3); MAGNESIUM 1.8 mg/dL (1.8-2.4); POTASSIUM 4.4 mmol/L (3.5-5.1); TOTAL BILIRUBIN 0.3 mg/dL (<0.1-1.0); TOTAL PROTEIN 5.1 g/dL (6.4-8.2)
[2018-04-04 06:16] LABS: TROPONIN-I LEVEL 1.4 ng/mL (<0.06)
[2018-04-04 08:00] VITALS: BP 111/71
[2018-04-04 11:54] VITALS: BP 106/61
--- NOTE | 2018-04-04 16:15 | NUR ---
nephrology called sheldon and wants a urology consult.
[2018-04-04 16:16] VITALS: BP 109/76
--- NOTE | 2018-04-04 16:16 | NUR ---
NEPROLOGY ORDERED A BLADDER SCAN. 78 MLS PRESENT.
--- NOTE | 2018-04-04 17:56 | NUR ---
ASSUMED CARE OF PT THIS AM ASSESSED AND DOCUMENTED. SEE CHART. PT ON CARDIAC MONITER TRACING SR HR 86. PT IS A&O WITH NO C/O PAIN. VSS WNL. PT HAS BEEN AFEBRILE. HE CONT ON TURN AND REPO Q2 HOURS BUT IS NOT VERY COMPLIANT. HE CONT ON 8L OF 02. PT IS NOT HAPPY WITH HIS DIET AND THREW HIS CALL LIGHT IN ANGER. EDUCATION GIVEN ON DEMAND. HOURLY ROUNDING COMPLETE. PT HAS BEEN RUDE TO STAFF. WAS AT BEDSIDE. HE HAS BEEN RUDE TO HER WELL.
[2018-04-04 20:00] VITALS: BP 97/66
[2018-04-05 00:33] VITALS: BP 108/74
--- NOTE | 2018-04-05 03:22 | NUR ---
ASSUMED PT CARE AT 1930, PT IS A&OX4, TRACING NSR WITH PACS ON THE MONITOR, ON 5L NC SATTING MID TO LOW 90'S. PT HAS IVF INFUSING PER MAR. PT IS ON ISOALTION FOR MRSA. PT WAS VERY AGITATED THAT RESPIRATORY HAD DECREASED HIS 02 FROM 8L TO 5L WHEN HE WEARS 8L AT HOME. PT WAS VERY RUDE TO STAFF. PT'S O2 WAS BUMPED UP TO 8L PER PT REQUEST. PT HAS A WOUND TO HIS RIGHT FOOT, FOOT WAS CLEANED AND WRAPPED BY WOUND NURSE. THIS RN DID NOT VISUALIZE WOUND. BED IN LOW POSITION, CALL LIGHT IN REACH, BED ALARM ON, YELLLOW ARM BAND AND SOCKS IN PLACE. HOURLY ROUNDING COMPLETED FOR PT SAFETY.
[2018-04-05 07:44] LABS: CALCIUM 8.5 mg/dL (8.5-10.1); CREATININE 2.3 mg/dL (0.6-1.3); POTASSIUM 4.8 mmol/L (3.5-5.1)
--- NOTE | 2018-04-05 07:45 | NUR ---
ASSUMED CARE OF PT ASSESSED AND DOCUMENTED. PT IS ON CARDIAC MONITER TRACING SR WITH PVC'S HR 87. 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 VSS WNL. PT IS AFEBRILE. HE IS ON 6L OF 02. HE IS A&O WITH NO C/O PAIN. WM.
[2018-04-05 08:00] VITALS: BP 113/58
[2018-04-05 11:38] LABS: CHOLESTEROL 133 mg/dL (<200); HDL CHOLESTEROL 22 mg/dL (>40); LDL CHOLESTEROL 94 mg/dL (<100); SERUM ASSESSMENT CLEAR; TRIGLYCERIDE 85 mg/dL (<150); VLDL 17 mg/dL (<40)
[2018-04-05 12:09] VITALS: BP 106/77
[2018-04-05 15:45] VITALS: BP 120/85
[2018-04-05 16:16] LABS: CALCIUM 7.3 mg/dL (8.5-10.1); CREATININE 1.9 mg/dL (0.6-1.3); MAGNESIUM 1.6 mg/dL (1.8-2.4); POTASSIUM 3.9 mmol/L (3.5-5.1)
--- NOTE | 2018-04-05 17:20 | NUR ---
PT HAD A VERY SHORT RUN OF VTAC. HE WAS ASYMPTOMATIC. RAN AN EKG SHOWED SR. PT HAS CONT TO BE DEMANDING AND RUDE TO ALL STAFF. HE HAS SAID THANK YOU TODAY. PT TO BE NPO TONIGHT FOR WHARF TENDER HEAD IN THE AM. CONSENT SIGNED AND IN THE CHART. PT HAD A MG+ OF 1.6. ORDER GIVEN FOR ELECTROLYTE PROTOCOL FROM DR GTZ. MG GIVEN AND REDRAW SCHEDULED FOR 2100. SEVERAL WARM BLANKETS TAKEN TO PT AND PTS . PT WAS COMPLIANT TODAY WITH TURNING AND REPOSITIONING. PTS DAUGHTER BROUGHT HIM [employer] FOR DINNER. PT STATES HE IS 78 YEARS OLD HE CAN EAT WHAT HE WANTS. EDUCATION GIVEN ON DEMAND.
[2018-04-05 20:00] VITALS: BP 115/58
[2018-04-05 23:21] VITALS: BP 112/74
[2018-04-06] VITALS (15 sets, daily range): BP systolic 90–141; BP diastolic 53–93
--- NOTE | 2018-04-06 05:07 | NUR ---
ASSUMED PT CARE AT 1930, PT IS A&OX4, PT IS TRACING NSR ON THE MONITOR, ON 8L NC. PT WEARS 8L AT HOME. PT IS NPO AT THIS TIME FOR A CARDIAC CATH THIS AM. PT HAS IVF INFUSING PER MAR. PT HAS A WOUND TO HIS RIGHT FOOT, TOES WERE AMPUTATED PRIOR TO THIS ADMISSION. WOUND WAS CLEANED AND DRESSED BY WOUND RN. THIS RN DID NOT VISULALILZE WOUND. PT IS REPOSITIONED EVERY 2 HOURS TO PREVENT SKIN BREAKDOWN. BED IN LOW POSITION, CALL LIGHT IN REACH, BED ALARM ON, YELLOW ARM BAND AND SOCKS IN PLACE. HOUROLY ROUNDING COMPLETED FOR PT SAFETY.
[2018-04-06 05:26] LABS: CALCIUM 8.3 mg/dL (8.5-10.1); POTASSIUM 4.2 mmol/L (3.5-5.1)
[2018-04-06 05:53] LABS: % SATURATION 5 % (20-39); IRON 15 ug/dL (50-175)
--- NOTE | 2018-04-06 10:10 | NUR ---
ASSUMED CARE OF PT THIS AM AROUND 0715- FUSION ANALYST IN PLACE ORDERED, TRACING SR- UPON ASSESSMENT PT NOTED TO BE RESTING IN BED, EYES CLOSED, AT SIDE-PT A&O X4- CONTINENT OF BOWEL AND BLADDER, USING URINAL- BED REST IN PLACE WITH Q 2 HOUR TURNS- LCTA, DIMINISHED IN BASES; RESP EVEN AND UN-LABORED- VSS, O2 SAT 99% ON 8L- ABDOMEN SOFT/OBESE/NON-TENDER, BS X4 QUADS- LAST BM REPORTED 04/05/18- +1 BLE EDEME NOTED, DRESSING IN PLACE TO RIGHT FOOT INDICATED, NO DRAINGE NOTED- BS MONITORED ORDERED, NPO THIS AM FOR CATH- RUE TRIPLE LUMEN PICC NOTED, IVF INFUSSING PRESCIBED- ISOLATION IN PLACE AND MAINTAINED INDICATED- 600 MG 1X DOSE PLAVIX ORDERED AND GIVEN THIS AM PRIOR TO CATH PRESCIBED-PT DENIES ANY C/O PAIN/DISCOMFORT THIS AM- LEFT UNIT AROUND 0900 VIA BED FOR SCHEDULED CATH- ALL NEEDS MET AT THIS TIME-WCTM
--- NOTE | 2018-04-06 10:34 | EKG ---
[place] [address] ELECTROCARDIOGRAM REPORT Name: DARLENE LORA Room: [address] ADM IN M.R.#: [id number] Admission: 04/01/18 Attend Phys: Sun Vanessa Discharge: Date of : 38 Report #: [id number] THIS REPORT FOR: //name// [facility] Test Date: 2018-04-05 Test Time: 15:56:19 Pat Name: DARLENE LORA Department: Room: [address] Gender: M Mail Handler Equipment Operator: CLAUDETTE : 1940 Requested By: Renato Damon Order Number: [id number] Jose MD: John Ceron Measurements Intervals [place] Rate: 91 P: 24 GA: 170 QRS: 113 QRSD: 116 T: -39 QT: 382 QTc: 471 Interpretive Statements Sinus rhythm Nonspecific intraventricular conduction delay Low voltage, precordial leads Nonspecific T abnormalities, diffuse leads Compared to ECG 04/01/2018 16:41:09 Intraventricular conduction delay now present Low QRS voltage now present Sinus tachycardia no longer present Atrial premature complex(es) no longer present T-wave abnormality still present Electronically Signed On 04-06-2018 10:34:19 CDT by John Ceron [email or web address] <ELECTRONICALLY SIGNED> By: John Ceron MD, FACC 04/06/18 1034 1556 1556 John Ceron MD, [facility] /EPI
--- NOTE | 2018-04-06 16:02 | EKG ---
[place] [address] ELECTROCARDIOGRAM REPORT Name: DARLENE LORA Room: [address] ADM IN M.R.#: [id number] Admission: 04/01/18 Attend Phys: Sun Vanessa Discharge: Date of : 38 Report #: [id number] THIS REPORT FOR: //name// [facility] Test Date: 2018-04-06 Test Time: 10:59:43 Pat Name: DARLENE LORA Department: Room: [address] Gender: M V Block Saw Operator: MIRACLE : 1940 Requested By: John Ceron Order Number: [id number] Jose MD: Cody Patton Measurements Intervals [place] Rate: 87 P: 21 MT: 174 QRS: 95 QRSD: 102 T: -51 QT: 390 QTc: 470 Interpretive Statements Sinus rhythm Premature ventricular complexes Right axis deviation Borderline T abnormalities, diffuse leads Compared to ECG 04/05/2018 15:56:19 Right-axis deviation now present Intraventricular conduction delay no longer present T-wave abnormality still present Electronically Signed On 04-06-2018 16:01:49 CDT by Cody Patton [email or web address] <ELECTRONICALLY SIGNED> By: Cody Patton MD, FACC 04/06/18 1601 1059 1059 Cody Patton MD, [facility] /EPI
--- NOTE | 2018-04-06 17:30 | NUR ---
PT NICKENLTY RESTING IN BED, AT SIDE- ASSISTANT PROFESSOR OF MARINE BIOLOGY IN PLACE ORDERED, TRACING SR- IV RUE PICC INTACT, IVF INFUSING PRESCIBED- VSS REMAIN STABLE- BS MONITORED PRESCIBED- GOOD PO INTAKE NOTED WITH MEALS- ISOLATION IN PLACE AND MAINTAINED INDICATED- DENIES ANY C/O PAIN/DISCOMFORT AT THIS TIME- CALL LIGHT AND PERSONAL BELONGINGS WITH IN REACH- PT MAKES NEEDS KNOWN- ALL NEEDS MET AT THIS TIME-WCTM
--- NOTE | 2018-04-06 18:33 | CARD ---
[address] [address] CARDIAC CATH REPORT Name: DARLENE LORA Room: 228-P ADM IN .R.#: [id number] Admission: 04/01/18 Attend Phys: Sun Vanessa Discharge: Date of : 38 Report #: [id number] THIS REPORT FOR: //name// APPROVED REPORT Study performed: 04/06/2018 08:23:58 Patient Details Patient Status: In-Patient Room #: 228 The patient is a 77 year-old male Event Personnel John Ceron Stage Set Designer, Chintan Cain (R) Monitor, Irene Benavides RN Paid Intern, Darlene Sosa Scrub Procedures Performed ALEENA Place w/wo Plasty Single CIRC Indication Non-STEMI Risk Factors Peripheral Vascular Disease, Diabetes Tobacco History () Previous Procedures/Diagnoses Previous Vascular Surgery Admission/Lab Medications/Medications given during procedure Heparin Unfract. Procedure Narrative The patient was brought electively to the Cardiac Catheterization Laboratory and was prepped and draped in a sterile manner. The right femoral was infiltrated with 1% Lidocaine subcutaneous anesthesia. A 6fr Ultimum Sheath sheath was inserted into the right femoral artery. Coronary angiography was performed using coronary diagnostic catheters. The right coronary system was accessed and visualized with a Diagnostic jr4 catheter. The left coronary system was accessed and visualized with a Diagnostic jl4 catheter. Left ventricular/Aortic Valve gradient assessed via catheter pullback. Closure device was deployed with a 6 Fr Angioseal STS 6Fr. The patient tolerated the procedure well and there were no complications associated with the procedure. There was no hematoma. Intraoperative Conscious Sedation [address] [address] CARDIAC CATH REPORT Name: DARLENE LORA Room: [address] IN [facility].#: [id number] Admission: 04/01/18 Attend Phys: Sun Vanessa Discharge: Date of : 38 Report #: [id number] Sedation start time: 9:17 Case end Time: 10:07 Fentanyl 25 mcg Versed 2 mg Fluoro Time: 9.3 minutes Dose: DAP [id number] cGycm2 2810 mGy Contrast Type and Amount: Visipaque 265 ml Coronary Angiography The patient's coronary anatomy is co- dominant. Diagnostic Cath Left Main 0% stenosis LAD 40% proximal stenosis, 50% mid stenosis Circumflex 90% proximal and 90% mid stenosis Right Coronary 50% proximal and 60% mid stenosis Left Ventriculography Left Ventriculography was not performed. IVUS Intravascular Ultrasound was performed on the mid circumflex artery segment vessel. Hemodynamics The aortic pressure is 113/70 mmHg with a mean of 87 mmHg. The left ventricular pressure is 104/9 mmHg with a mean of mmHg. The left ventricular end diastolic pressure is 15 mmHg. There was no gradient across the aortic valve upon pullback. Pullback from the left ventricle to the aorta revealed no gradient across the aortic valve. PCI Technique Lesion Anticoagulation was achieved with Heparin. Patient was preloaded with Plavix. Percutaneous coronary intervention was performed on the mid circumflex artery segment. The lesion stenosis prior to intervention was 90% with AUGUST 3 flow. A 6F XB 4.0 Guide Catheter was used to engage the lm ostium. A IG: BMW 190cm Interventional Guidewire was used to cross the lesion. BALLOON DILATION A Balloon catheter Mini Trek RX 2.0 X 8 was inserted and inflated up to 16.00atm for 9seconds. Repeat angiography revealed the following post-dilatation results: 60% stenosis. Additional Inflation: 16.00atm for 8seconds. Additional Inflation: 18.00atm for 8seconds. [place] [address] CARDIAC CATH REPORT Name: DARLENE LORA Room: [address] IN [facility].#: [id number] Admission: 04/01/18 Attend Phys: Sun Vanessa Discharge: Date of : 38 Report #: [id number] STENT DEPLOYMENT A drug-eluting stent Xience Alpine RX 3.0 X 12 was inserted and inflated up to 18.00atm for 27seconds. Repeat angiography revealed the following post-stent deployment results: 0% stenosis. Additional Inflation: 18.00atm for 9seconds. Additional Inflation: 18.00atm for 7seconds. 2 additional drug eluting stents were required to cover the long area of stenosis. [place] stents were used rather than one long stent because the artery involved was toruous, long, and moderately calcified. Final angiography reveals 0 % stenosis with AUGUST 3 flow. PCI Technique Lesion Percutaneous coronary intervention was performed on the mid circumflex artery segment. Conclusion 1. Diffuse cad with 2 sequential stenosis noted in a tortuous and moderately calcified codominant circumflex artery. 2. successful placement of 3 drug eluting stents in the circumflex artery. Recommendations Cardiac Rehabilitation Referral Medications Administered Clopidogrel <ELECTRONICALLY SIGNED> By: John Ceron MD, FACC 04/06/181832 32 1833Dbernie Ceron MD, FACC /INF
[2018-04-06 21:06] LABS: IgA 110 mg/dL (61-437); IgG 327 mg/dL (700-1600)
[2018-04-07] VITALS (8 sets, daily range): BP systolic 104–122; BP diastolic 58–81
--- NOTE | 2018-04-07 01:53 | NUR ---
PT ALERT ORIENTED. R GROIN DRSG C/D/I. R GROIN SOFT. R FOOT DRSG C/D/I. PT CALLING OUT FOR BED PELAEZ FOR BM. VOIDS PER URINAL. TELEMETRY SHOWS SR. DENIES PAIN. WILL CONTINUE TO MONITOR.
[2018-04-07 02:07] LABS: IgM 19 mg/dL (15-143)
[2018-04-07 05:41] LABS: HEMATOCRIT 32.7 % (42.0-52.0); MCH 24.2 pg (26.0-34.0); MCHC 30.5 g/dL (28.0-37.0); MCV 79.3 fL (80.0-100.0); MPV 9.2 fl. (7.2-11.1); RBC 4.13 mil/uL (4.50-6.00); RDW-CV 16.5 % (10.5-14.5); WBC 9.2 thou/uL (4.0-11.0)
[2018-04-07 06:14] LABS: ALBUMIN 2.3 g/dL (3.4-5.0); CALCIUM 8.2 mg/dL (8.5-10.1); CREATININE 1.8 mg/dL (0.6-1.3); POTASSIUM 4.3 mmol/L (3.5-5.1); TOTAL BILIRUBIN 0.4 mg/dL (<0.1-1.0); TOTAL PROTEIN 5.2 g/dL (6.4-8.2)
[2018-04-07 06:17] LABS: TROPONIN-I LEVEL 0.78 ng/mL (<0.06)
--- NOTE | 2018-04-07 10:16 | NUR ---
Following for d/c planning needs. Received multiple requests to speak with pt and spouse. Spoke with admissions liaison at [facility]. Pt would need to pay $1100 out of pocket amount prior to them accepting for skilled. Skilled liaison to do on-site visit this afternoon. Pt has not worked with therapy yet. He said he normally does not walk, but was able to take a few steps on previous stay at [facility]. Pt said his basement has been re-done by his son so that he can stay there. Pt would prefer going home with home health on d/c from hospital. Referral sent to [facility]. PT and OT to eval pt today and make recommendations for post discharge. Will remain available to assist and make necessary referrals.
--- NOTE | 2018-04-07 10:50 | NUR ---
Nutrition: pt s/p cardiac cath yesterday. Wt up from admit. RFT's elevated, albumin low. Good po intake noted. Meds reviewed. Pt is noted as having stated he "can eat what he wants;" daughter brought in Joby[place] recently. Pt at low nutrition risk.
--- NOTE | 2018-04-07 14:17 | NUR ---
ASSUMED CARE OF PATIENT AFTER REPORT THIS MORNING. PATIENT AWAKE, ALERT, AND ORIENTED APPROPRIATELY. PHYSICAL ASSESSMENT COMPLETED AND CHARTED. NO COMPLAINTS OF PAIN. VITAL SIGNS STABLE. OXYGEN SATURATION WITHIN NORMAL LIMITS ON 9 LPM PER NASAL CANULA. PATIENT TRANSFERS WITH ASSISTANCE FROM STAFF, HOWEVER, HAS REFUSED TO TRANSFER OR ATTEMPT TO AMBULATE TODAY. STOOD AT BEDSIDE WITH PHYSICAL THERAPY. USES CALL LIGHT APPROPRIATELY. MOVED PATIENT TO HALLWAY VIA BED AT TIME OF TORNADO WARNING. PATIENT IS BACK IN ROOM AT THIS TIME RESTING IN BED. DENIES NEEDS AT THIS TIME. CALL LIGHT WITHIN REACH. NURSING WILL CONTINUE TO MONITOR.
--- NOTE | 2018-04-07 16:52 | EKG ---
[place] [address] ELECTROCARDIOGRAM REPORT Name: DARLENE LORA Room: [address] ADM IN M.R.#: [id number] Admission: 04/01/18 Attend Phys: Sun Vanessa Discharge: Date of : 38 Report #: [id number] THIS REPORT FOR: //name// [facility] Test Date: 2018-04-07 Test Time: 08:21:51 Pat Name: DARLENE LORA Department: Room: [address] Gender: M Commissioned Sales Associate: : 1940 Requested By: John Ceron Order Number: [id number] Jose MD: Cody Patton Measurements Intervals [place] Rate: 91 P: 42 [place]: 176 QRS: 109 QRSD: 123 T: -48 QT: 397 QTc: 489 Interpretive Statements Sinus rhythm Nonspecific intraventricular conduction delay Borderline repolarization abnormality Baseline wander in lead(s) V2 Compared to ECG 04/06/2018 10:59:43 Intraventricular conduction delay now present Ventricular premature complex(es) no longer present Right-axis deviation no longer present T-wave abnormality no longer present Electronically Signed On 04-07-2018 16:51:58 CDT by Cody Patton [email or web address] <ELECTRONICALLY SIGNED> By: Cody Patton MD, FACC 04/07/18 1651 0 0 Cody Patton MD, FACC /EPI
--- NOTE | 2018-04-07 17:28 | NUR ---
RECEIVED CONSULT FOR POSSIBLE REHAB ADMISSIONS. CONSULT HAS TABITHA ACKNOWLEDGED BY BIAS BINDING CUTTER AND DR. MILLAN. PT ADMITTED FROM SNF FOR NSTEMI AND S/P STENT PLACEMENT X3. PT IS MORBIDLY OBESE AND EXTREMELY DEBILITATED. 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 PATIENT WAS EVALUATED BY PT/OT/ST TODAY. PER PATIENT HE DID NOT WALK PRIOR TO THIS AND IS NOT PLANNING ON WALKING BUT GETTING AN ELECTRIC W/C AND DOES ALL BATHING AND LB DRESSING AND ASSISTS WITH OTHER ADL'S WELL. PATIENT UNCOOPERATIVE WITH THERAPIES OFTEN REFUSING OR DECLINING TASKS, IS ONLY ABLE TO SIT EOB FOR VERY SHORT TIME AND REFUSING TO GET UP TO A CHAIR. UNSURE IF PATIENT WOULD BE WILLING OR PARTICIPATE IN 3 HOURS OF THERAPY. WILL FOLLOW ALONG TO SEE HOW PATIENT PROGRESSES FOR SKILLED VS REHAB. THANK YOU FOR THIS CONSULT.
--- NOTE | 2018-04-07 18:24 | NUR ---
PATIENT REMAINS ALERT AND ORIENTED APPROPRIATELY. WORKED WITH PHYSICAL THERAPY, OCCUPATIONAL THERAPY, AND SPEECH THERAPY TODAY, SEE NOTES. DENIES NEEDS AT THIS TIME. CALL LIGHT WITHIN REACH. NURSING WILL CONTINUE TO MONITOR.
[2018-04-07 21:06] LABS: KAPPA FREE LIGHT CHAINS 18.4 mg/L (3.3-19.4); LAMBDA FREE LIGHT CHAINS 13.2 mg/L (5.7-26.3)
[2018-04-08] VITALS: BP 114/65
[2018-04-08 02:28] VITALS: BP 112/90
--- NOTE | 2018-04-08 04:39 | NUR ---
PT ALERT ORIENTED. CALLING OUT FREQUENTLY FOR VARIOUS THINGS. O2 TITRATED DOWN TO 8 LITERS HIGH FLOW. TELEMETRY SHOWS ST. R FOOT DRSG C/D/I. DENIES PAIN. WILL CONTINUE TO MONITOR.
[2018-04-08 08:00] VITALS: BP 109/72
[2018-04-08] MEDS ORDERED: ATORVASTATIN CA40 MG PO (10:34)
[2018-04-08] MEDS ORDERED: PLAVIX 75 MG TA75 M1 PO (10:36)
[2018-04-08] MEDS ORDERED: ASPIR 8181 MG PO (10:40)
--- NOTE | 2018-04-08 11:48 | NUR ---
Following for d/c planning needs. Liaison from [facility] said today that they are not able to accept pt on d/c from hospital. Pt informed. Liaison told pt their team felt he was more appropriate for hospice. Pt is in agreement. [facility] refused to accept pt back. Pt is agreeable to return home with hospice. Pt given choices and is agreeable with referral being made to [facility]. Contacted [facility] and they will contact pt on d/c.
[2018-04-08 12:04] VITALS: BP 106/77
--- NOTE | 2018-04-08 14:19 | NUR ---
PT GIVEN DISCHARGE INSTRUCTIONS AT THIS TIME. PT VERBALIZES UNDERSTANDING. PT STATES HE NEEDS HELP WITH TRANSFERING TO W/C TO GO HOME. PT REASSURED THAT HE WILL BE ASSISTED. DISCUSSED WITH PT WHO WILL BE HOME TO HELP WITH TRANSFERS WHILE HE IS THERE. PT STATES HE HAS TAUGHT HIMSELF TO TRANSFER FROM W/C AND BED AND IS ABLE TO USE A BEDPAN/ URINAL AT HOME. PT STATES HIS AND SON WILL BE ABLE TO HELP SOME WELL. PT TO HAVE HOSPICE AT HOME. AT BEDSIDE DURING DISCHARGE. NO OTHER CONCERNS AT THIS TIME. CLWR. WCTM.
--- NOTE | 2018-04-08 16:02 | NUR ---
PT DISCHARGED AT THIS TIME WITH W/C TRANSPORATION. NO OTHER CONCERNS AT THIS TIME.
--- NOTE | 2018-04-08 16:47 | NUR ---
I have reviewed the documentation by CHATO BULLARD from 04/07/28 to 04/08/18 and I concur with it. RUBEN RICHARDSON
--- NOTE | 2018-04-16 09:13 | CON ---
[address] [address] CONSULTATION Name: DARLENE LORA Room: [address] IN M.R.#: [id number] Admission: 04/01/18 Attend Phys: Sun Vanessa Discharge: 04/08/18 Date of : 38 Report #: [id number] THIS REPORT FOR: //name// CC: Diana Rizzo DATE OF SERVICE: 04/05/2018 CONSULTING PHYSICIAN: Dr. Damon. REASON FOR NEPHROLOGY CONSULTATION: Acute kidney injury on chronic kidney disease stage 3. CHIEF COMPLAINT: Right flank pain and dysuria. HISTORY OF PRESENT ILLNESS: This is a pleasant 77-year-old male who has past medical history of peripheral vascular disease status post recent toe amputations, diabetes mellitus type 2, hypertension, diabetic neuropathy and it looks like CKD stage 3 with baseline creatinine of , was admitted initially with right flank pain and dysuria. The patient was found to have a UTI as well as right-sided pyelonephritis and was started on treatment for that. He was also found to have elevated troponin with peak troponin 2.28, which has come down to 1.4. Cardiology evaluated the patient for this and found out that the patient recently was at [facility] with troponin more elevated than this. Cardiology has basically recommended medical management for now and the patient also received heparin drip for 24 hours. Nephrology has been consulted because the patient's creatinine was elevated to 3.2 when he came in and it had gone down to 2.4 yesterday, but since it was still elevated from his baseline, Nephrology was consulted. When the patient came in, he was also having this right flank pain and abdominal CT scan showed evidence of mild right hydronephrosis with a tiny stone in the bladder with perinephric stranding on the right kidney. Most likely, the patient had recently passed this kidney stone and his right flank pain also eventually got resolved. He has no history of kidney stones in the past. Before coming to the hospital, the patient had been taking Zestril and had been taking metolazone in addition to other medications and these medications are on hold right now. He has been urinating okay, although he does have problems with dribbling sometimes and his postvoid residual has been normal. Renal ultrasound was repeated yesterday and it did not show any hydronephrosis at all. The patient's creatinine has come down to 2.3 today. He is just not very happy with the food in the hospital. ALLERGIES: No known drug allergies. REVIEW OF SYSTEMS: Not happy with the food in the hospital, no shortness of breath, no flank pain or chest pain right now. Other review of systems were done [place] [address] CONSULTATION Name: LORADARLENE Room: [address] M.R.#: [id number] Admission: 04/01/18 Attend Phys: Sun Vanessa Discharge: 04/08/18 Date of : 38 Report #: [id number] PAST MEDICAL HISTORY: Includes history of chronic kidney disease stage 3 with baseline creatinine around 1.2-1.5, likely diabetic and hypertensive nephropathy; diabetes, hypertension, peripheral vascular disease and diabetic neuropathy. History of septicemia in the past. PAST SURGICAL HISTORY: Left knee arthroscopy. Pilonidal cyst surgery. FAMILY HISTORY: Noncontributory. SOCIAL HISTORY: Not smoking or using alcohol or any other recreational drugs. HOME MEDICATIONS: Include metolazone, Zestril, potassium chloride, budesonide, glipizide, ipratropium, polyethylene glycol, insulin, rivaroxaban, magnesium and the patient was taking Celebrex, but has not taken any in the last few months and has not taken any other NSAIDs recently also. PHYSICAL EXAMINATION: VITAL SIGNS: Blood pressure is 108/74, respiratory rate is 20, pulse rate is 95, temperature 36.9, pulse ox is 99% on 5 liters nasal cannula. GENERAL: He is awake, alert, oriented x 3. HEAD, EYES, EARS, NOSE AND THROAT: Mucous membranes are moist. NECK: No JVD. CHEST: Clear to auscultation bilaterally. No crackles or wheezing heard. CARDIOVASCULAR: S1, S2 normal. No murmurs heard. ABDOMEN: Soft, nondistended, nontender, obese. Bowel sounds are present. EXTREMITIES: There is no lower extremity edema and symmetrical extremities. NEUROLOGICAL FUNCTION: Gross neurological function seems to be intact. PSYCHIATRIC: Mood and affect seems to be normal. LABORATORY DATA: From yesterday, hemoglobin was 9.7 and from this morning, potassium is 4.8, sodium is 137, creatinine is 2.3, BUN is 27, CO2 is 25 and other labs are reviewed. IMAGING: Renal ultrasound, chest x-ray, chest CT and abdominal CT were reviewed. ASSESSMENT AND PLAN: 1. Acute kidney injury on chronic kidney disease stage 3, likely because of diuretics, metolazone, also possibly if he was still taking Zestril and also some element of obstructive uropathy: The patient's creatinine was 3.2 when he came in, whereas his baseline creatinine is 1.2-1.5. Creatinine has come down to 2.3 today. He is getting IV fluids and I would recommend continuing them. He is also getting treatment for right-sided possible pyelonephritis and UTI. He also passed a kidney stone and his urine is being strained. Renal ultrasound has not shown any hydronephrosis. His abdominal CT scan, which was done on [address] [address] CONSULTATION Name: DARLENE LORA Room: [address] IN [facility].#: [id number] Admission: 04/01/18 Attend Phys: Sun Vanessa Discharge: 04/08/18 Date of : 38 Report #: [id number] admission did show mild right-sided hydro, which was likely because of passage of a kidney stone. Avoid nephrotoxic agents. Follow a.m. labs. Keep his diuretics, ZULMA inhibitors and NSAIDs on hold. 2. Chronic kidney disease stage 3, baseline creatinine 1.2-1.5, likely diabetic and hypertensive nephropathy and also because of NSAIDs. 3. Hypertension: Blood pressure is currently controlled on current blood pressure medication regimen. 4. Anemia: We will check iron parameters. 5. Urinary tract infection and possible right-sided pyelonephritis: The patient is getting antibiotics for that. 6. Left kidney masses, likely cyst. They were not visualized on renal ultrasound. 7. Elevated troponin: Cardiology will evaluate the patient. They did not think this is a non-STEMI and they are treating this medically. Thank you for this consultation and we will continue to follow along with you. Plan was discussed with the patient as well as the patient's nurse. <ELECTRONICALLY SIGNED> By: Araceli Camarillo MD 04/16/18 0913 0827 [id number] Camarillo MD /nt
== END 2018-04-08 16:04 | disposition hospice, home (50) | DRG 853 ==
LOC: M.ERS 16:37 → M.2W 18:02 → M.TBA-ER 18:02 → M.2W 18:53
PROVIDERS: Family Medicine; Internal Medicine; Internal Medicine Cardiovascular Disease; Physician Assistant; ADMIT Internal Medicine
DX: A41.9 Sepsis, unspecified organism (principal); I21.4 Non-ST elevation (NSTEMI) myocardial infarction; J96.01 Acute respiratory failure with hypoxia; N17.0 Acute kidney failure with tubular necrosis; N12 Tubulo-interstitial nephritis, not specified as acute or chronic; N13.2 Hydronephrosis with renal and ureteral calculous obstruction; Z68.41 Body mass index [BMI] 40.0-44.9, adult; E11.51 Type 2 diabetes mellitus with diabetic peripheral angiopathy without gangrene; E11.40 Type 2 diabetes mellitus with diabetic neuropathy, unspecified; N18.3 Chronic kidney disease, stage 3 (moderate); I12.9 Hypertensive chronic kidney disease with stage 1 through stage 4 chronic kidney disease, or unspecified chronic kidney disease; E11.22 Type 2 diabetes mellitus with diabetic chronic kidney disease; D64.9 Anemia, unspecified; N28.89 Other specified disorders of kidney and ureter; Z96.652 Presence of left artificial knee joint; E66.01 Morbid (severe) obesity due to excess calories; N21.0 Calculus in bladder; E78.5 Hyperlipidemia, unspecified; G47.33 Obstructive sleep apnea (adult) (pediatric); E83.42 Hypomagnesemia; E83.51 Hypocalcemia; N28.9 Disorder of kidney and ureter, unspecified; T50.2X5A Adverse effect of carbonic-anhydrase inhibitors, benzothiadiazides and other diuretics, initial encounter; I25.10 Atherosclerotic heart disease of native coronary artery without angina pectoris; Z79.899 Other long term (current) drug therapy; Z79.4 Long term (current) use of insulin; Z89.429 Acquired absence of other toe(s), unspecified side; Y92.89 Other specified places as the place of occurrence of the external cause